=== PATIENT | male | born 1950 | race Caucasian/White ===

== ENCOUNTER 2020-02-20 18:47 | Inpatient (IN) | payer BC, OTHER ==
[~2020-02-20] VITALS: Ht 172.7 cm; Wt 88.5 kg
[2020-02-20] MEDS ORDERED: BLOOD SUGAR DIAGNOSTIC 1 EACH STRIP IN ONE (21:30)
[2020-02-20] MEDS ORDERED: LORAZEPAM 0.5 MG TABLET PO PRN (21:30)
[2020-02-20] MEDS ORDERED: TEMAZEPAM 7.5 MG CAPSULE PO PRN (21:30)
[2020-02-20] MEDS ORDERED: MAGNESIUM HYDROXIDE 30 ML UDC PO PRN (21:30)
[2020-02-20] MEDS ORDERED: ACETAMINOPHEN 325 MG TABLET PO PRN (21:30)
[2020-02-21 00:21] VITALS: BP 139/85
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
[2020-02-21] MEDS ORDERED: METO25TA6 PO (02:23)
[2020-02-21] MEDS ORDERED: CARB-93 PO (02:23)
--- NOTE | 2020-02-21 06:51 | NUR ---
GPS RN CLOSING NOTES: PT AWAKE, A/O X2-3. SLEPT FOR 8 HR WITHOUT SLEEPING MEDS THIS SHIFT. NO S/S OF DISTRESS. RESPIRATION EVEN AND UNLABORED WITH EQUAL RISE AND FALL OF THE SHIFT. CALLED PT KRISS ON [phone] AT [phone] BUT NUMBER IS NOT WORKING. WILL CONTINUE TO MONITOR AND ENDORSE TO AM SHIFT.
[2020-02-21 08:00] VITALS: BP 106/75
[2020-02-21 08:49] LABS: ALBUMIN 3.6 g/dL (3.4-5.0); BILIRUBIN,TOTAL 0.9 mg/dL (0.2-1.0); CALCIUM, SERUM 8.6 mg/dL (8.5-10.1); CREATININE 1.2 mg/dL (0.6-1.3); POTASSIUM 3.9 mmol/L (3.5-5.1); TOTAL PROTEIN, SERUM 7.3 g/dL (6.4-8.2)
--- NOTE | 2020-02-21 08:49 | NUR ---
RN-CO: DR PARRISH MADE AWARE THAT PT'S HOME MEDICATIONS NEEDS TO BE RECONCILED.
[2020-02-21] MEDS: CARBIDOPA/LEVODOPA 25/100 MG 1 UDTAB PO SCH ×3 (10:05→17:18)
[2020-02-21 16:00] VITALS: BP 108/53
[2020-02-21] MEDS ORDERED: METOPROLOL TARTRATE 25 MG TABLET PO SCH (17:00)
[2020-02-21] MEDS: GABAPENTIN 100 MG CAPSULE PO SCH (17:19)
[2020-02-21] MEDS: busPIRone 5 MG TABLET PO SCH (17:19)
[2020-02-21] MEDS: MAG HYDROX/AL HYDROX/SIMETH 30 ML UDC PO PRN (17:24)
--- NOTE | 2020-02-21 17:24 | NUR ---
RN-CO: PT C/O HYPERACIDITY MAALOX SUSP. GIVEN.
[2020-02-21 17:49] LABS: APPEARANCE,URINE CLEAR (CLEAR); BILIRUBIN,URINE NEGATIVE (NEGATIVE); BLOOD, URINE NEGATIVE Ery/uL (NEGATIVE); COLOR,URINE YELLOW (YELLOW); KETONES,URINE TRACE (NEGATIVE); LEUKOCYTE ESTERASE ,URINE NEGATIVE (NEGATIVE); NITRITE, URINE NEGATIVE (NEGATIVE); PROTEIN,URINE NEGATIVE (NEGATIVE); UGLUCOSE NEGATIVE (NEGATIVE)
[2020-02-21 17:58] LABS: BACTERIA,URINE None seen /HPF (None Seen); RBC,URINE 0-2 /HPF (0-2); SQUAMOUS EPITHELIAL CELL,UR 0-2 /HPF (None Seen); WBC,URINE 0-2 /HPF (0-3)
[2020-02-21 20:40] VITALS: BP 99/53
[2020-02-21] MEDS: ATORVASTATIN 10 MG TABLET PO SCH (21:31)
--- NOTE | 2020-02-22 06:35 | NUR ---
GPS RN CLOSING NOTES: PT AWAKE, A/O 2X, LAYING ON BED. SLEPT FOR 8 HR WITHOUT SLEEPING MEDS THIS SHIFT. NO S/S OF DISTRESS. RESPIRATION EVEN AND UNLABORED WITH EQUAL RISE AND FALL OF THE CHEST ON ROOM AIR. ALL PT CARE NEEDS MET ANTICIPATED. WILL CONTINUE TO MONITOR AND ENDORSE TO AM SHIFT.
[2020-02-22 07:35] LABS: MAGNESIUM 2.4 mg/dL (1.8-2.4); PHOSPHORUS 4.1 mg/dL (2.5-4.9); POTASSIUM 3.9 mmol/L (3.5-5.1)
[2020-02-22 07:37] LABS: BASOPHILS # (AUTO) 0.1 /CMM (0.0-0.2); BASOPHILS % (AUTO) 0.7 % (0.0-2.0); EOSINOPHILS % (AUTO) 3.5 % (0.0-6.0); HEMATOCRIT 46 % (39-51); HEMOGLOBIN 15.7 g/dL (13.5-17.5); LYMPHOCYTES # (AUTO) 2.6 /CMM (0.8-4.8); LYMPHOCYTES % (AUTO) 26.1 % (20.0-44.0); MEAN CORPUSCULAR HGB CONC 34 g/dl (31.0-36.0); MEAN CORPUSCULAR VOLUME 92 fL (80-96); MONOCYTES # (AUTO) 0.9 /CMM (0.1-1.30); MONOCYTES % (AUTO) 8.4 % (2.0-12.0); NEUTROPHILS # (AUTO) 6.2 /CMM (1.8-8.9); NEUTROPHILS % (AUTO) 61.3 % (43.0-81.0); PLATELET COUNT (AUTO) 225 /CMM (150-450); RED BLOOD CELL COUNT(AUTO) 5.02 MIL/uL (4.5-6.0); WHITE BLOOD COUNT (AUTO) 10.1 K/uL (4.3-11.0)
[2020-02-22 08:00] VITALS: BP 135/94
[2020-02-22] MEDS: GABAPENTIN 100 MG CAPSULE PO SCH ×3 (08:08→16:38)
[2020-02-22] MEDS: busPIRone 5 MG TABLET PO SCH ×4 (08:08→16:38)
[2020-02-22] MEDS: METOPROLOL TARTRATE 25 MG TABLET PO SCH ×2 (08:09→16:38)
[2020-02-22] MEDS: CARBIDOPA/LEVODOPA 25/100 MG 1 UDTAB PO SCH ×3 (08:09→16:38)
--- NOTE | 2020-02-22 09:00 | NUR ---
RN NOTE0- PT ALERT AMBULATORY FLAT AFFECT POOR EYE CONTACT SLOW TO RESPOND TO QUERY, PO INTAKE GOOD MED COMPLIANT, FOCUS ON PHONE AND CALLING PEOPLE AND DC, DENIES SI HI AH VH PARANOID, DELUSIONAL;
--- NOTE | 2020-02-22 12:09 | NUR ---
MARKOS INITIAL DISCHARGE PLAN: [place] [address] ([phone]). Patient's ex- Lacey Styles ([phone]) is involved in the pt's treatment and discharge plan. Patient's nephew is RIGODEMETRI Styles ([phone]). MARKOS will continue to work with patient, family, and MF to ensure a safe and proper discharge plan.
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
--- NOTE | 2020-02-22 13:34 | NUR ---
MARKOS FAMILY CONTACT: SW spoke with patient's ex-, Lacey ([phone]) regarding patient's treatment and discharge plan. Lacey stated that she would like patient to go back to [facility], and this field underwriter informed her of the conversation with at the facility. Lacey asked this field underwriter if there were alternate placement resources and this field underwriter provided Lacey with Board and Care placement options which she stated she will look into. This field underwriter asked to be updated if there are any placement options and will help with coordination of care. Lacey stated that the patient's nephew is DPOA Wiliam Jensen ([phone]) however he does not want to be involved. Lacey stated that she is going to be out of town for the next weeks and when she returns, she is going to be the patient's DPOA and it will no longer be Wiliam. This field underwriter attempted to call Wiliam, however the phone number provided is invalid.
--- NOTE | 2020-02-22 13:49 | NUR ---
RN NOTE- BUSPAR ORDER CHANGED. BUSPAR 5MG TID STARTING AT 1700.
[2020-02-22 16:00] VITALS: BP 109/58
[2020-02-22 19:47] VITALS: BP 113/63
[2020-02-22] MEDS: GABAPENTIN 300 MG CAPSULE PO SCH (21:23)
[2020-02-22] MEDS: ATORVASTATIN 10 MG TABLET PO SCH (21:24)
[2020-02-23 08:00] VITALS: BP 145/88
[2020-02-23] MEDS: GABAPENTIN 100 MG CAPSULE PO SCH ×3 (08:19→16:17)
[2020-02-23] MEDS: METOPROLOL TARTRATE 25 MG TABLET PO SCH ×2 (08:19→16:18)
[2020-02-23] MEDS: CARBIDOPA/LEVODOPA 25/100 MG 1 UDTAB PO SCH ×3 (08:19→16:17)
[2020-02-23] MEDS: busPIRone 5 MG TABLET PO SCH ×3 (08:19→16:17)
--- NOTE | 2020-02-23 09:00 | NUR ---
RN NOTE- PT SHOWERING CLEAN INTERACTIVE BLUNTED AFFECT A BIT SLOW TO RESPOND TO QUERY. PO INTAKE GOOD MED COMPLIANT, PT DENIES SI HI AH VH NO BEHAVIORAL ISSUES
--- NOTE | 2020-02-23 14:04 | NUR ---
UR NOTE: Authorization # [id number] pre-approved for 5 days review due on 02/24/20. SW called [facility] ([phone]) and requested to speak with vocational case manager Chandni for concurrent review. They stated that the vocational case manager for this case is [facility] ([phone]). This medical underwriter spoke with [facility] and scheduled a live review for tomorrow 02/24/20 at 11:30AM.
[2020-02-23 16:00] VITALS: BP 126/67
[2020-02-23 19:39] VITALS: BP 125/66
[2020-02-23] MEDS: ATORVASTATIN 10 MG TABLET PO SCH (21:21)
[2020-02-23] MEDS: GABAPENTIN 300 MG CAPSULE PO SCH (21:21)
[2020-02-24 08:00] VITALS: BP 122/59
[2020-02-24] MEDS: GABAPENTIN 100 MG CAPSULE PO SCH ×3 (08:44→17:01)
[2020-02-24] MEDS: busPIRone 5 MG TABLET PO SCH ×3 (08:44→17:01)
[2020-02-24] MEDS: CARBIDOPA/LEVODOPA 25/100 MG 1 UDTAB PO SCH ×3 (08:44→16:59)
[2020-02-24] MEDS: METOPROLOL TARTRATE 25 MG TABLET PO SCH ×2 (08:45→17:00)
--- NOTE | 2020-02-24 10:17 | NUR ---
FAMILY CONTACT: SW received patient's son's/KENAN Styles correct phone number ([phone]), called and left a voicemail for a call back.
--- NOTE | 2020-02-24 10:19 | NUR ---
MARKOS FAMILY CONTACT: MARKOS called patient's ex-, Lacey ([phone]) to discuss discharge plan, however no answer and left a message for a call back. Addendum: 02/24/20 at 1507 by ROSENDO SIN This inspector automatic typewriter spoke with Lacey who stated that she has yet to speak to Edwina regarding placement as she is getting ready for a camping trip and will talk to Edwina today.
--- NOTE | 2020-02-24 10:48 | NUR ---
UR NOTE: Authorization # [id number] approved for 4 days review due on 02/29/20. MARKOS spoke with case [facility] ([phone]) and conducted a live review. This sheet writer provided patient's progress, medications and changes, psychiatrist notes.
--- NOTE | 2020-02-24 10:53 | NUR ---
PC HEARING: PT has his probable cause hearing today and it was upheld for grave disability.
--- NOTE | 2020-02-24 15:04 | NUR ---
FAMILY CONTACT: SW received a call back from patient's son's/DPOA Wiliam Styles ([phone]) and discussed treatment and discharge plan. Wiliam stated that he has been in touch with Perez Rahman's ex- ([phone]) who informed him of the discharge planning process with this medical writer. This medical writer provided Wiliam with Edwina's [facility] placement information and he stated that he will talk to her today and update this medical writer once they decide on a new placement for the patient.
--- NOTE | 2020-02-24 15:07 | NUR ---
COORDINATION OF CARE: SW received a call from [facility] placement service liaison representative ([phone]) who stated that she spoke with patient's ex-, Lacey and pt's nephew Wiliam regarding placement options. She stated that the family preferred something in [facility] and Edwina provided them with a few options. Edwina will be forwarding this specifications writer the information of the placement and stated that she will be speaking with the family again to finalize the discharge plan.
[2020-02-24 16:00] VITALS: BP 112/53
--- NOTE | 2020-02-24 16:12 | NUR ---
GPS RN NOTE RECEIVED PT IN BED RESTING, PT ISOLATIVE, GUARDED, SUSPICIOUS, QUIET. PT DENIED PAIN, NO DISTRESS NOTED, PT SAID "IM FINE JUST TIRED". ALL NEEDS MET AT THIS TIME, ENVIRONMENTAL CHECK DONE, BED IN LOCKED AND LOWEST POSITION, WILL CONTINUE TO MONITOR Q15 MIN FOR SAFETY AND BEHAVIOR.
[2020-02-24 20:33] VITALS: BP 106/69
[2020-02-24] MEDS: GABAPENTIN 300 MG CAPSULE PO SCH (21:13)
[2020-02-24] MEDS: ATORVASTATIN 10 MG TABLET PO SCH (21:13)
[2020-02-24] MEDS ORDERED: QUETIAPINE FUMARATE 25 MG TABLET PO SCH (22:00)
[2020-02-25 08:00] VITALS: BP 119/60
[2020-02-25] MEDS: CARBIDOPA/LEVODOPA 25/100 MG 1 UDTAB PO SCH ×3 (08:38→16:42)
[2020-02-25] MEDS: busPIRone 5 MG TABLET PO SCH ×3 (08:38→16:47)
[2020-02-25] MEDS: METOPROLOL TARTRATE 25 MG TABLET PO SCH ×2 (08:38→16:43)
[2020-02-25] MEDS: GABAPENTIN 100 MG CAPSULE PO SCH ×3 (08:38→16:42)
[2020-02-25 16:00] VITALS: BP_SYST 102; BP_DIAS 56; BP_DIAS 66
[2020-02-25] MEDS: QUETIAPINE FUMARATE 25 MG TABLET PO SCH ×2 (16:43→21:25)
[2020-02-25] MEDS: MAG HYDROX/AL HYDROX/SIMETH 30 ML UDC PO PRN ×2 (16:47→21:22)
--- NOTE | 2020-02-25 16:50 | NUR ---
GPS/RN-NOTES PATIENT C/O INDIGESTION. MAALOX 30ML GIVEN PRN ORDER. WILL CONT. MONITORING.
--- NOTE | 2020-02-25 18:11 | NUR ---
GPS/RN-NOTES PATIENT STATED MAALOX WAS HELPFUL WITH HIS INDIGESTION.
[2020-02-25 19:46] VITALS: BP 107/57
[2020-02-25 19:51] VITALS: BP 107/57
[2020-02-25] MEDS: ATORVASTATIN 10 MG TABLET PO SCH (21:24)
[2020-02-25] MEDS: GABAPENTIN 300 MG CAPSULE PO SCH (21:25)
[2020-02-26 08:00] VITALS: BP 154/65
[2020-02-26] MEDS: METOPROLOL TARTRATE 25 MG TABLET PO SCH ×2 (08:08→16:20)
[2020-02-26] MEDS: CARBIDOPA/LEVODOPA 25/100 MG 1 UDTAB PO SCH ×3 (08:08→16:20)
[2020-02-26] MEDS: QUETIAPINE FUMARATE 25 MG TABLET PO SCH ×3 (08:08→21:41)
[2020-02-26] MEDS: busPIRone 5 MG TABLET PO SCH ×3 (08:08→16:19)
[2020-02-26] MEDS: GABAPENTIN 100 MG CAPSULE PO SCH ×3 (08:08→16:19)
--- NOTE | 2020-02-26 09:00 | NUR ---
UR NOTE: Authorization # [id number] approved for 4 days review due on 02/29/20. MARKOS spoke with case [facility] ([phone]) and conducted a live review. This sports writer provided patient's progress, medications and changes, psychiatrist notes. Addendum: 02/26/20 at 0901 by ROSENDO SIN ACCIDENTALLY ENTERED NOTE AGAIN
--- NOTE | 2020-02-26 09:02 | NUR ---
UR/COORDINATION OF CARE: [facility] ([phone]) case specialist provided this staff writer with the following outpatient psychiatrists for the patient to follow up with: [facility] Dr. Delroy Doe MD Dr. González Kennedy MD
[2020-02-26 16:00] VITALS: BP_SYST 109; BP_SYST 110; BP_DIAS 65; BP_DIAS 69
[2020-02-26] MEDS: MAG HYDROX/AL HYDROX/SIMETH 30 ML UDC PO PRN ×2 (16:19→20:14)
--- NOTE | 2020-02-26 16:20 | NUR ---
GPS/RN-NOTES PATIENT C/O INDIGESTION ,MAALOX 30ML GIVEN PRN ORDER. WILL CONT. MONITORING.
--- NOTE | 2020-02-26 18:32 | NUR ---
GPS/RN-NOTES PATIENT STATED MAALOX WAS HELPFUL WITH HIS INDIGESTION.
[2020-02-26 19:52] VITALS: BP 103/58
--- NOTE | 2020-02-26 20:27 | NUR ---
GPS RN NOTES: RECEIVED PT LAYING ON BED, A/O X3. APPEARS DEPRESSED, FLAT AFFECT, COOPERATIVE, PASSIVE, ISOLATIVE, WITHDRAWN, ABLE TO MAKE NEEDS KNOWN. PATIENT COMPLAINED OF INDIGESTION, MAALOX 30ML 1 CUP GIVEN PO ORDERED. OFFERED FLUIDS AND SNACKS TOLERATED. BED IN LOW POSITION AND LOCKED, CALL LIGHT WITHIN REACH. WILL CONTINUE TO MONITOR Q15 MINS AND Q1 HR FOR SAFETY, MOOD, AND BEHAVIOR.
[2020-02-26] MEDS: GABAPENTIN 300 MG CAPSULE PO SCH (21:41)
[2020-02-26] MEDS: ATORVASTATIN 10 MG TABLET PO SCH (21:41)
--- NOTE | 2020-02-27 06:29 | NUR ---
GPS RN CLOSING NOTES: PT AWAKE, A/O X3. NO BEHAVIORAL ISSUES THIS SHIFT. PT SLEPT FOR 8 HR WITHOUT SLEEPING MEDS THIS SHIFT. NO S/S OF DISTRESS. RESPIRATION EVEN AND UNLABORED WITH EQUAL RISE AND FALL OF THE SHIFT ON ROOM AIR. ALL PT CARE NEEDS MET ANTICIPATED. WILL CONTINUE TO MONITOR AND ENDORSE TO AM SHIFT.
[2020-02-27 08:00] VITALS: BP 116/58
[2020-02-27] MEDS: METOPROLOL TARTRATE 25 MG TABLET PO SCH ×2 (08:34→16:33)
[2020-02-27] MEDS: GABAPENTIN 100 MG CAPSULE PO SCH ×3 (08:34→16:33)
[2020-02-27] MEDS: busPIRone 5 MG TABLET PO SCH ×3 (08:34→16:33)
[2020-02-27] MEDS: QUETIAPINE FUMARATE 25 MG TABLET PO SCH ×3 (08:34→21:25)
[2020-02-27] MEDS: CARBIDOPA/LEVODOPA 25/100 MG 1 UDTAB PO SCH ×3 (08:34→16:33)
[2020-02-27] MEDS: MAG HYDROX/AL HYDROX/SIMETH 30 ML UDC PO PRN ×3 (11:06→20:58)
--- NOTE | 2020-02-27 11:15 | NUR ---
GPS/RN-NOTES PATIENT C/O INDIGESTION. MAALOX 30ML GIVEN PRN ORDER. WILL CONT. MONITORING.
--- NOTE | 2020-02-27 12:20 | NUR ---
GPS/RN-NOTES PATIENT STATED MAALOX WAS REALLY HELPFUL WITH MY INDIGESTION.
--- NOTE | 2020-02-27 12:53 | NUR ---
GPS/RN-NOTES SEEN BY CHARLEY STRICKLAND WITH ORDER OF PROTONIX 40MG P.O AC BREAKFAST .NOTED AND CARRIED. OUT.
[2020-02-27 16:00] VITALS: BP 116/69
--- NOTE | 2020-02-27 16:49 | NUR ---
GPS/RN-NOTES PATIENT C/O INDIGESTION GIVE ME MAALOX , MAALOX 30ML GIVEN PRN ORDER. WILL CONT. MONITORING.
[2020-02-27 20:40] VITALS: BP 116/63
--- NOTE | 2020-02-27 21:00 | NUR ---
GPS-RN NOTE: PATIENT C/O INDIGESTION. ADMINISTERED MAALOX 30ML PO ORDERED. WILL CONTINUE TO MONITOR.
[2020-02-27] MEDS: GABAPENTIN 300 MG CAPSULE PO SCH (21:25)
[2020-02-27] MEDS: ATORVASTATIN 10 MG TABLET PO SCH (21:25)
[2020-02-28] MEDS: PANTOPRAZOLE 40 MG TABLET.DR PO SCH (07:30)
[2020-02-28 08:00] VITALS: BP 119/57
[2020-02-28] MEDS: CARBIDOPA/LEVODOPA 25/100 MG 1 UDTAB PO SCH ×3 (08:51→17:20)
[2020-02-28] MEDS: busPIRone 5 MG TABLET PO SCH ×3 (08:51→17:19)
[2020-02-28] MEDS: QUETIAPINE FUMARATE 25 MG TABLET PO SCH ×3 (08:51→21:20)
[2020-02-28] MEDS: METOPROLOL TARTRATE 25 MG TABLET PO SCH ×2 (08:53→17:20)
[2020-02-28] MEDS: GABAPENTIN 100 MG CAPSULE PO SCH ×3 (08:53→17:19)
--- NOTE | 2020-02-28 08:54 | NUR ---
GPS RN NOTE HELD METOPROLOL HR: 54.
--- NOTE | 2020-02-28 09:02 | NUR ---
GPS RN NOTES REPORT GIVEN TO CHARGE NURSE HARIKA FOR CONTINUATION OF CARE.
[2020-02-28 16:00] VITALS: BP 138/70
[2020-02-28 19:59] VITALS: BP 126/59
[2020-02-28] MEDS: MAG HYDROX/AL HYDROX/SIMETH 30 ML UDC PO PRN (20:18)
--- NOTE | 2020-02-28 20:18 | NUR ---
Pt c/o indigestion. Maalox 30 ml po prn given as ordered. Will continue to monitor.
[2020-02-28] MEDS: ATORVASTATIN 10 MG TABLET PO SCH (21:20)
[2020-02-28] MEDS: GABAPENTIN 300 MG CAPSULE PO SCH (21:20)
--- NOTE | 2020-02-28 21:23 | NUR ---
Post 1 hr maalox effective. Indigestion relieved. Pt is compliant with PM meds and is friendly to staff and care. Will continue to monitor.
[2020-02-29] MEDS: PANTOPRAZOLE 40 MG TABLET.DR PO SCH (07:36)
[2020-02-29 08:00] VITALS: BP 148/92
[2020-02-29] MEDS: CARBIDOPA/LEVODOPA 25/100 MG 1 UDTAB PO SCH ×2 (08:10→12:04)
[2020-02-29] MEDS: GABAPENTIN 100 MG CAPSULE PO SCH ×3 (08:10→16:31)
[2020-02-29] MEDS: QUETIAPINE FUMARATE 25 MG TABLET PO SCH ×2 (08:11→16:32)
[2020-02-29] MEDS: busPIRone 5 MG TABLET PO SCH ×3 (08:11→16:30)
[2020-02-29] MEDS: METOPROLOL TARTRATE 25 MG TABLET PO SCH ×2 (08:11→16:31)
--- NOTE | 2020-02-29 09:00 | NUR ---
RN NOTE- PT ALERT INTERACTIVE VISIBLE ON UNIT, BLUNTED AFFECT, DENIES SI HI AH VH , PO INTAKE GOOD MED COMPLIANT
--- NOTE | 2020-02-29 11:31 | NUR ---
UR NOTE: Authorization # [id number]. MARKOS spoke with case [facility] ([phone]) and conducted a live review. This law writer provided patient's progress, medications and changes, psychiatrist notes. [facility] stated that she needs to "Staff this case" and will be needing to call this law writer back today. Addendum: 02/29/20 at 1410 by ROSENDO SIN [facility] informed this law writer that patient is authorized for the following days 02/28 and 03/01 with review due on Saturday03/02/20.
[2020-02-29 16:00] VITALS: BP 110/53
--- NOTE | 2020-02-29 16:35 | NUR ---
RN NOTE- DR. VIVAR CAME AND SAW PT AND STATED THAT HE DOESN'T THINK PT HAS PARKINSONS. HE ORDERED SINEMET TO BE DC AT THIS TIME. COMPLIED.
--- NOTE | 2020-02-29 19:49 | NUR ---
GPS RN NOTES PATIENT IN BED, LAYING IN BED, ALERT AND ORIENTED X 3. PT IS CALM, COOPERATIVE, GUARDED. MED COMPLIANT AND IS AMBULATORY. BREATHING EVEN AND UNLABORED ON ROOM AIR. SHOWS NO SIGNS OF ACUTE RESPIRATORY DISTRESS, NO ACUTE PAIN. DENIES SI AND HI. SAFETY PRECAUTIONS IN PLACE. BED IN LOWEST POSITION, LOCKED, AND WILL CONTINUE TO MONITOR.
[2020-02-29 20:00] VITALS: BP 109/48
[2020-02-29 20:24] VITALS: BP 109/48
[2020-02-29] MEDS: GABAPENTIN 300 MG CAPSULE PO SCH (21:51)
[2020-02-29] MEDS: ATORVASTATIN 10 MG TABLET PO SCH (21:51)
[2020-02-29] MEDS ORDERED: QUETIAPINE FUMARATE 25 MG TABLET PO SCH (22:00)
[2020-03-01] MEDS: PANTOPRAZOLE 40 MG TABLET.DR PO SCH (07:35)
[2020-03-01 08:00] VITALS: BP 137/71
[2020-03-01] MEDS: GABAPENTIN 100 MG CAPSULE PO SCH ×2 (08:26→12:28)
[2020-03-01] MEDS: busPIRone 5 MG TABLET PO SCH ×3 (08:27→16:19)
[2020-03-01] MEDS: QUETIAPINE FUMARATE 25 MG TABLET PO SCH ×2 (08:27→16:19)
[2020-03-01] MEDS: METOPROLOL TARTRATE 25 MG TABLET PO SCH ×2 (08:27→16:20)
--- NOTE | 2020-03-01 09:00 | NUR ---
RN NOTE- PT CALM INTERACTIVE FLAT AFFECT SLOW TO RESPOND AT TIMES W POOR EYE CONTACT AND PT ALSO HAS LITTLE INSIGHT. CAN BECOME AGITATED EASILY THOUGH CALM THIS MORNING. FOCUS ON DC, MED COMPLIANT PO INTAKE GOOD DENIES SI HI AH VH
--- NOTE | 2020-03-01 12:48 | NUR ---
MARKOS COORDINATION OF CARE: MARKOS contacted Lluvia, education administrator at ([phone]) [facility] and [address], [place] [address] ([phone]) who stated she will pick pt up at 2:00pm tomorrow 03/02/20.
--- NOTE | 2020-03-01 12:52 | NUR ---
MARKOS FAMILY CONTACT: MARKOS called patient's ex-, Lacey ([phone]) to discuss discharge plan, she is agreeable to pt being discharged tomorrow Saturday03/02/20 [address] [place] [address] ([phone]).
[2020-03-01] MEDS: GABAPENTIN 300 MG CAPSULE PO SCH ×3 (13:00→21:45)
[2020-03-01] MEDS ORDERED: GABAPENTIN 100 MG CAPSULE PO SCH (13:00)
[2020-03-01 16:00] VITALS: BP 118/53
--- NOTE | 2020-03-01 17:43 | NUR ---
RN NOTE- COVID RESULTS NEGATIVE
[2020-03-01 20:07] VITALS: BP 122/71
[2020-03-01] MEDS: ATORVASTATIN 10 MG TABLET PO SCH (21:45)
[2020-03-01] MEDS ORDERED: QUETIAPINE FUMARATE 25 MG TABLET PO SCH (22:00)
--- NOTE | 2020-03-02 06:54 | NUR ---
GPS RN CLOSING NOTES: PT SLEEPING COMFORTABLY IN BED. NO BEHAVIORAL ISSUES THIS SHIFT. MEDICATION COMPLIANT. SLEPT 7HR WITHOUT SLEEP MEDS THIS SHIFT. NO S/S OF DISTRESS. RESPIRATION EVEN AND UNLABORED WITH EQUAL RISE AND FALL OF THE CHEST ON ROOM AIR. ALL PT CARE NEEDS MET ANTICIPATED. WILL CONTINUE TO MONITOR AND ENDORSE TO AM SHIFT.
[2020-03-02 08:00] VITALS: BP 136/68
[2020-03-02] MEDS: GABAPENTIN 300 MG CAPSULE PO SCH ×2 (08:32→12:23)
[2020-03-02 08:41] VITALS: BP 136/68
[2020-03-02] MEDS: QUETIAPINE FUMARATE 25 MG TABLET PO SCH (08:41)
[2020-03-02] MEDS: PANTOPRAZOLE 40 MG TABLET.DR PO SCH (08:41)
[2020-03-02] MEDS: METOPROLOL TARTRATE 25 MG TABLET PO SCH (08:41)
[2020-03-02] MEDS: busPIRone 5 MG TABLET PO SCH ×2 (08:41→12:22)
--- NOTE | 2020-03-02 09:56 | NUR ---
DISCHARGE NOTE: Pt will be discharged at 2:00pm via facility transport to [address] [address] ([phone]). Patients ex-, Lacey ([phone]) has been notified and agrees with discharge plan. Pts mood appears labile with congruent affect. Pt denies visual/auditory hallucinations and denies suicidal/homicidal ideation. Pt is alert and oriented x2-3, is ambulatory, and appropriately groomed and dressed. Pt will be under the care of Psychiatrist: Dr. Simon Pfeiffer Address: [address] [place] [phone] and Showcase Maker: [place] [address] ([phone]). The multidisciplinary exit care form was done, printed, signed, and given to the patient.
--- NOTE | 2020-03-02 10:12 | NUR ---
UR NOTE: Authorization # [id number]. SW received a call from manager case [facility] ([phone]) and provided discharge clinical.
--- NOTE | 2020-03-02 11:06 | NUR ---
MARKOS COORDINATION OF CARE: MARKOS received a call from [facility] (P:[phone] F: [phone]) requesting clinical information and COVID test. MARKOS faxed clinicals and COVID test results.
--- NOTE | 2020-03-02 11:46 | NUR ---
SUBSTANCE ABUSE INTERVENTION: SW provided substance abuse intervention. Pt states he does not want to stop drinking alcohol and refused resources.
--- NOTE | 2020-03-02 16:11 | NUR ---
GPS/RN-DISCHARGE NOTES RECEIVED DISCHARGE ORDER FROM DR. TORRES ( PSYCHIATRIST) ,DR. WELCH ( RUBBER DOWN) MADE AWARE WITH ORDERS .PATIENT WAS DISCHARGE AT [facility]. PATIENT DID NOT VERBALIZE SI/HI,DENIES VISUAL/AUDITORY HALLUCINATIONS AT THE TIME OF DISCHARGE. PATIENT REFUSED FULL BODY ASSESSMENT PRIOR TO DISCHARGE. STATED" YOU DON'T NEED TO TAKE PICTURE AGAIN , I'M LEAVING TODAY". EXPLAINED HOSPITAL POLICIES BUT STILL REFUSED BODY ASSESSMENT.ALL DISCHARGE PAPERS WAS REVIEWED AND GIVEN TO THE PATIENT. INSTRUCTED PATIENT TO FOLLOW UP WITH PSYCHIATRIST AND MEDICAL DOCTOR IN A WEEK OR NEEDED,ALSO INSTRUCTED TO CALL 911 OR GO TO THE NEAREST EMERGENCY FACILITY IN CASE OF EMERGENCY. PER NOTES PATIENT EX- (KRISS ) MADE AWARE OF THE DISCHARGE. PATIENT WAS ASSISTED IN THE LOBBY FOR SAFETY. ALL BELONGINGS WAS GIVEN BACK TO THE PATIENT.HE WAS AEROBICS INSTRUCTOR BY LEONEL (FACILITY NOODLE PRESS OPERATOR) VIA PRIVATE CAR. MASK WAS OFFERED TO THE PATIENT. Addendum: 03/02/20 at 1851 by COLT HODGES RN IN ADDITION TO MY ABOVE NOTES. OFFERED FLU VACCINE TO THE PATIENT PRIOR TO DISCHARGE BUT PATIENT STRONGLY REFUSED. STATED" NOT AT THIS TIME". OFFERED X3.
== END 2020-03-02 16:10 | disposition home or self-care (01) | DRG 885 ==
LOC: GPS 19:58
PROVIDERS: ADMIT Psychiatry & Neurology Psychosomatic Medicine; ATTEND Student in an Organized Health Care Education/Training Program
DX: F25.0 Schizoaffective disorder, bipolar type (principal); F01.50 Vascular dementia, unspecified severity, without behavioral disturbance, psychotic disturbance, mood disturbance, and anxiety; F29 Unspecified psychosis not due to a substance or known physiological condition; G20 Parkinson's disease; F02.80 Dementia in other diseases classified elsewhere, unspecified severity, without behavioral disturbance, psychotic disturbance, mood disturbance, and anxiety; E78.5 Hyperlipidemia, unspecified; I10 Essential (primary) hypertension; E86.0 Dehydration; R79.89 Other specified abnormal findings of blood chemistry; Z79.899 Other long term (current) drug therapy; Z73.6 Limitation of activities due to disability; E87.6 Hypokalemia; I69.319 Unspecified symptoms and signs involving cognitive functions following cerebral infarction
CPT/HCPCS: 36415; 70551-TC; 80048-TC; 80053-TC; 80061-TC; 81000-TC; 82962-TC; 83735-TC; 84100-TC; 85025-TC; 87081-TC; 87086-TC; 97116-TC; 97530-TC